=== PATIENT | male | born 1965 | race Caucasian/White ===

== ENCOUNTER → 2019-02-07 14:39 | Outpatient (CLI) | payer OTHER, SELFPAY ==
--- NOTE | 2019-02-07 14:56 | XR_ITS ---
XR chest 2V HISTORY: ITS.REASON: COUGH ORDERING PHYSICIAN: Audi White MD PATIENT AGE: 53 years COMPARISON: 08/09/2009. FINDINGS: The cardiomediastinal silhouette and pulmonary vascularity are within normal limits. There is a stable right lung benign calcified granuloma. There is also punctate left midlung benign calcified granuloma. The lung field lateral is clear. There is no pleural effusion or pneumothorax.. No acute bony abnormalities. IMPRESSION: No change and no acute process.
[2019-02-07 16:20] LABS: Alanine Aminotransferase 68 U/L (12-78); Albumin Level 3.6 gm/dL (3.4-5.0); Alkaline Phosphatase 73 U/L (46-116); Anion Gap 16.7 mEq/L (5-15); Aspartate Amino Transferase 21 U/L (15-37); Bilirubin,Total 0.3 mg/dL (0.2-1.0); Blood Urea Nitrogen 20 mg/dL (7-18); CKMB Relative Index 1.1 U/L (0-4.0); Calcium 8.5 mg/dL (8.5-10.1); Carbon Dioxide 26 mmol/L (21.0-32.0); Chloride 102 mmol/L (98-107); Creatine Kinase 80 U/L (39-308); Creatine Kinase MB 0.9 ng/ml (0.0-3.6); Creatinine,Serum 1.37 mg/dL (0.70-1.30); Estimated Glomerular Filt Rate 55 ml/min (>60); GFR (African American) 66 ML/MIN (>60); Globulin 3.5 gm/dl (1.3-3.2); Glucose 128 mg/dL (74-106); Potassium 3.7 mmoL/L (3.5-5.1); Sodium 141 mmol/L (136-145); Total Protein,Serum 7.1 gm/dL (6.4-8.2); Troponin I < 0.02 ng/ml (0.00-0.06); Uric Acid 9.1 mg/dL (2.6-7.2)
== END ==
PROVIDERS: PCP Family Medicine; Visit Provider Family Medicine
DX: R07.9 Chest pain, unspecified (principal); R05 Cough; R52 Pain, unspecified
CPT/HCPCS: 36415; 71046; 80053; 82550; 82553; 84484; 84550; 93005

== ENCOUNTER → 2019-03-03 08:45 | Outpatient (POV) | payer OTHER, SELFPAY | PROVIDERS: Visit Provider Specialist | DX: R20.0 Anesthesia of skin (principal); R20.2 Paresthesia of skin | CPT/HCPCS: 95886; 95909 ==

== ENCOUNTER → 2019-11-04 11:42 | Outpatient (CLI) | payer OTHER, SELFPAY ==
--- NOTE | 2019-11-04 11:45 | XR_ITS ---
PROCEDURE: XR CHEST 2V CLINICAL HISTORY: UPPER RESPIRATORY SYMPTOMS , Rheumatoid arthritis, cough COMPARISON: No exams were available for comparison FINDINGS: The cardiomediastinal silhouette and pulmonary vascularity are within normal limits. The lungs are clear without infiltrates, suspicious nodules, or pleural effusions. There is a calcified granuloma in the right midlung in the right middle lobe. No acute bony findings. IMPRESSION: No acute findings. Dictated by: Geovanny Saenz MD 11/04/2019 12:03 Electronically signed by Geovanny Saenz MD in [place] 11/04/2019 12:03
== END ==
PROVIDERS: PCP Family Medicine; Visit Provider Family Medicine
DX: R05 Cough (principal)
CPT/HCPCS: 71046

== ENCOUNTER → 2020-05-26 11:43 | Outpatient (CLI) | payer OTHER, SELFPAY ==
[2020-05-26 12:15] LABS: Basophils # 0.1 K/mm3 (0-0.2); Basophils % 1.5 % (0.1-2.0); Eosinophils # 0.3 K/mm3 (0.0-0.4); Eosinophils % 3.8 % (0.1-12.0); Hematocrit 42.5 % (42.0-52.0); Hemoglobin 14.1 g/dL (14.1-18.0); Lymphocytes # 2.3 K/mm3 (0.7-4.5); Lymphocytes % 35.1 % (10-50); Mean Corpuscular HGB Conc 33.2 g/dL (31.8-35.4); Mean Corpuscular Hemoglobin 31.7 pg (27.0-31.2); Mean Corpuscular Volume 95.4 fl (80-94); Mean Platelet Volume 6.7 fl (7.4-10.4); Monocytes # 0.5 K/mm3 (0.1-1.0); Monocytes % 7.1 % (1.7-9.3); Neutrophils # 3.5 K/mm3 (1.8-7.8); Neutrophils % 52.5 % (37.0-80.0); Platelet Count 322 K/mm3 (142-424); Red Blood Count 4.45 M/mm3 (4.60-6.20); Red Cell Distribution Width 13.2 % (11.5-17.5); White Blood Count 6.6 K/mm3 (4.8-10.8)
[2020-05-26 12:25] LABS: Strep Scrn Group A (Rapid) Negative (Negative)
== END ==
PROVIDERS: PCP Family Medicine; Visit Provider Nurse Practitioner
DX: Z03.818 Encounter for observation for suspected exposure to other biological agents ruled out (principal)
CPT/HCPCS: 36415; 85025; 87430; U0003

== ENCOUNTER 2020-07-06 09:42 | Emergency (ER) | payer OTHER, SELFPAY ==
[2020-07-06 10:15] VITALS: BP 133/92; PULSE 75; RESP 19; TEMP 36.6; O2SAT 98; BMI 32.7
--- NOTE | 2020-07-06 10:35 | HMH.EDUTC ---
[facility] Disposition Clinical Impression: Exposure to COVID-19 virus Disposition: Home, Self-Care Condition on Discharge: Good Instructions: Preventing the Spread of Coronavirus Discharge Instructions Additional Instructions: *Monitor Temp, Over the counter Motrin or Tylenol as directed/as needed Tylenol every 4 hours and Motrin every 6 hours (as long as your family doctor has told you that you can take it) for fever or pain. and straight to ER if unable to lower temp less than 101.0 after medication given *Warm salt water gargles may help to soothe the throat *Throat Lozenges *Warm fluids like tea with honey may help to soothe the throat *Sleep elevated *Humidifier/Vaporizer Follow up IMMEDIATELY for new or worsening symptoms or no Noticeable improvement over the next 48-72 hours. 911 for difficulty breathing or swallowing You was tested for today for COVID19 your test result should be back in the next 24-48 hours, you may call to the [facility] tomorrow to see if your test results are back and the result [phone] [facility] hours are 9am-9pm You was given a handout with instructions for Self Quarantine and Self isolation for while you wait on test results and what to do if they are positive If you are positive the Health Dept will be contacting you also Referrals: Audi White MD [Primary Care Provider] - As needed Forms: Work/School Release Time of Disposition: 10:36 Medical Decision Making - C[place] Inquiry Pt receiving controlled substance: No [place] was queried for this patient: No Vital Signs: 07/06/20 10:15 Temperature 97.8 F Temperature Source Oral Pulse Rate [Right Brachial] 75 Respiratory Rate 19 Blood Pressure [Right Arm] 133/92 H Blood Pressure Mean [Right Arm] 105 Blood Pressure Source [Right Arm] Automatic Cuff Blood Pressure Position [Right Arm] Sitting 02 Sat by Pulse Oximetry 98 Oxygen Delivery Method Room Air [facility] HPI - General Stated complaint: covid exposure Time Seen by Provider: 07/06/20 10:35 Mode of Arrival: Ambulatory Source of Information: Patient Limitations: No Limitations Description of Symptoms (Recalled from Triage Doc. by RN): PATIENT REQUESTING COVID TEST D/T EXPOSURE; DENIES SYMPTOMS HEENT Symptoms (Recalled from RN notes): No Resp Symptoms (Recalled from RN notes): No Skin Symptoms (Recalled from RN notes): No MS Symptoms (Recalled from RN notes): No Functional Status (Recalled from RN notes): WNL - History of Present Illness Provider Complaint: Patient states that he was recently exposed to COVID by someone that just tested positive States that he is not having any symptoms but still wanted to get checked - Related Data Allergies Allergy/AdvReac Type Severity Reaction Status Date / Time No Known Allergies Allergy Verified 07/06/20 10:24 - Worker's Comp Is this a Worker's Comp case?: No [facility] History - Hepatitis A Screen Drug use history?: No High risk sexual behaviors?: No History of sexually transmitted infection?: No Currently employed?: No Childcare worker?: No Do you have indoor plumbing?: Yes Do you have electricity?: Yes Attestation statement:: This patient has been screened for Hepatitis A risk factors. I have reviewed the patient's past medical history: Yes Medical History: Reports:: Diabetes Mellitus Type 2 - Social History Alcohol Intake: never Occupational Status: other ROS Obtained: Yes All systems reviewed & no additional complaints, Yes Systems reviewed as appropriate & no additional complaints - Constitutional Constitutional: Reports system reviewed and no additional complaints, except as docu, Denies body ache, Denies chills, Denies fever(s), Denies headache(s) Physical Exam - General General appearance: alert, in no apparent distress - ENT ENT exam: Present: normal exam, normal oropharynx, mucous membranes moist, TM's normal bilaterally, normal external ear exam - Respiratory Respiratory exam: Present: normal lung sounds
[2020-07-06 10:55] VITALS: BP 133/92; PULSE 75; RESP 19; TEMP 36.6; O2SAT 98
[2020-07-07 15:33] LABS: Covid-19 Nasal PCR Sendout Lex Not Detected
== END 2020-07-06 10:56 | disposition home or self-care (01) ==
PROVIDERS: Emergency Provider Nurse Practitioner; PCP Family Medicine
DX: Z20.828 Contact with and (suspected) exposure to other viral communicable diseases (principal)
CPT/HCPCS: 99201; U0004

== ENCOUNTER → 2021-03-02 09:58 | Outpatient (CLI) | payer OTHER, SELFPAY ==
[2021-03-02 10:51] LABS: Adenovirus,PCR Not Detected (NotDetected); Bordetella Pertussis Not Detected (NotDetected); Chlamydophila Pneumoniae, PCR Not Detected (NotDetected); Coronavirus 19, PCR Not Detected (NotDetected); Coronavirus 229E Not Detected (NotDetected); Coronavirus NL63 Not Detected (NotDetected); Coronavirus OC43 Not Detected (NotDetected); Coronovirus HKU1,PCR Not Detected (NotDetected); Human Metapneumovirus Not Detected (NotDetected); Influenza A, PCR Not Detected (NotDetected); Influenza AH1, 2009 Not Detected (NotDetected); Influenza AH1, PCR Not Detected (NotDetected); Influenza AH3,PCR Not Detected (NotDetected); Influenza B, PCR Not Detected (NotDetected); Mycoplasma Pneumoniae, PCR Not Detected (NotDetected); Parainfluenza 1, PCR Not Detected (NotDetected); Parainfluenza 2, PCR Not Detected (NotDetected); Parainfluenza 3, PCR Not Detected (NotDetected); Parainfluenza 4, PCR Not Detected (NotDetected); Respiratory Syncytial Virus Not Detected (NotDetected); Rhinovirus/Enterovirus Not Detected (NotDetected)
[2021-03-02 12:33] LABS: Basophils # 0.1 K/mm3 (0-0.2); Basophils % 0.6 % (0.1-2.0); Eosinophils % 0.3 % (0.1-12.0); Hematocrit 40.7 % (42.0-52.0); Hemoglobin 14.8 g/dL (14.1-18.0); Lymphocytes # 1.7 K/mm3 (0.7-4.5); Lymphocytes % 16.9 % (10-50); Mean Corpuscular HGB Conc 36.4 g/dL (31.8-35.4); Mean Corpuscular Hemoglobin 32.9 pg (27.0-31.2); Mean Corpuscular Volume 90.5 fl (80-94); Mean Platelet Volume 8.1 fl (7.4-10.4); Monocytes # 0.4 K/mm3 (0.1-1.0); Monocytes % 4.3 % (1.7-9.3); Platelet Count 383 K/mm3 (142-424); Red Blood Count 4.49 M/mm3 (4.60-6.20); Red Cell Distribution Width 13.9 % (11.5-17.5); White Blood Count 10.2 K/mm3 (4.8-10.8)
== END ==
PROVIDERS: PCP Family Medicine; Visit Provider Family Medicine
DX: Z20.822 Contact with and (suspected) exposure to COVID-19 (principal)
CPT/HCPCS: 36415; 85025; 87581; 87633; 87798

== ENCOUNTER 2021-04-18 11:35 | Emergency (ER) | payer OTHER, SELFPAY ==
[2021-04-18 13:28] VITALS: BP 0/0; PULSE 0; RESP 0; TEMP -17.7; TEMP 0
== END 2021-04-18 13:29 | disposition left against medical advice (07) ==
PROVIDERS: Emergency Provider Nurse Practitioner; PCP Family Medicine
DX: Z53.21 Procedure and treatment not carried out due to patient leaving prior to being seen by health care provider (principal)

== ENCOUNTER → 2022-02-25 08:34 | Outpatient (CLI) | payer BC, SELFPAY ==
[2022-02-24 18:27] LABS: Basophils # 0.1 K/mm3 (0-0.2); Basophils % 1.8 % (0.1-2.0); Eosinophils # 0.2 K/mm3 (0.0-0.4); Eosinophils % 4.1 % (0.1-12.0); Hematocrit 41.5 % (42.0-52.0); Hemoglobin 13.8 g/dL (14.1-18.0); Lymphocytes # 1.9 K/mm3 (0.7-4.5); Lymphocytes % 36.3 % (10-50); Mean Corpuscular HGB Conc 33.3 g/dL (31.8-35.4); Mean Corpuscular Hemoglobin 32.1 pg (27.0-31.2); Mean Corpuscular Volume 96.3 fl (80-94); Monocytes # 0.4 K/mm3 (0.1-1.0); Monocytes % 7.3 % (1.7-9.3); Neutrophils # 2.6 K/mm3 (1.8-7.8); Neutrophils % 50.6 % (37.0-80.0); Platelet Count 380 K/mm3 (142-424); Red Blood Count 4.31 M/mm3 (4.60-6.20); Red Cell Distribution Width 13.7 % (11.5-17.5); White Blood Count 5.2 K/mm3 (4.8-10.8)
[2022-02-24 18:30] LABS: Chol/HDL Ratio 5.8 (1-3.5); Cholesterol 197 mg/dl (140-200); HDL Cholesterol 34 mg/dl (40-60)
[2022-02-24 18:33] LABS: Triglycerides 418 mg/dl (30-150)
[2022-02-24 19:01] LABS: Erythrocyte Sedimentation Rate 21 mm/hr (0-20)
== END ==
PROVIDERS: PCP Family Medicine; Visit Provider Family Medicine
DX: M05.79 Rheumatoid arthritis with rheumatoid factor of multiple sites without organ or systems involvement (principal); E78.5 Hyperlipidemia, unspecified
CPT/HCPCS: 80061; 85025; 85651

== ENCOUNTER → 2022-05-20 08:23 | Outpatient (CLI) | payer BC, SELFPAY ==
[2022-05-19 19:48] LABS: Anion Gap 18.9 mEq/L (5-15); Blood Urea Nitrogen 19 mg/dl (9-20); Calcium 9.2 mg/dl (8.4-10.2); Carbon Dioxide 25 mmol/L (22.0-30.0); Chloride 99 mmol/L (98-107); Estimated Glomerular Filt Rate 53 ml/min (>60); GFR (African American) 64 ML/MIN (>60); Glucose 127 mg/dl (74-100); Potassium 3.9 mmoL/L (3.5-5.1); Sodium 139 mmol/L (136-145)
[2022-05-19 20:19] LABS: Prostate Specific Ag Screen 0.9 ng/ml (0.0-4.0)
== END ==
PROVIDERS: PCP Family Medicine; Visit Provider Family Medicine
DX: N40.0 Benign prostatic hyperplasia without lower urinary tract symptoms (principal); Z12.5 Encounter for screening for malignant neoplasm of prostate
CPT/HCPCS: 80048; G0103

== ENCOUNTER → 2022-08-01 16:50 | Outpatient (CLI) | payer BC, SELFPAY ==
[2022-08-01 19:24] LABS: Basophils # 0.1 K/mm3 (0-0.2); Basophils % 1.3 % (0.1-2.0); Eosinophils # 0.3 K/mm3 (0.0-0.4); Eosinophils % 2.8 % (0.1-12.0); Hematocrit 40.9 % (42.0-52.0); Hemoglobin 13.8 g/dL (14.1-18.0); Lymphocytes # 2.4 K/mm3 (0.7-4.5); Lymphocytes % 26.7 % (10-50); Mean Corpuscular HGB Conc 33.8 g/dL (31.8-35.4); Mean Corpuscular Volume 94.8 fl (80-94); Mean Platelet Volume 7.3 fl (7.4-10.4); Monocytes # 0.4 K/mm3 (0.1-1.0); Monocytes % 4.5 % (1.7-9.3); Neutrophils # 5.9 K/mm3 (1.8-7.8); Neutrophils % 64.6 % (37.0-80.0); Platelet Count 388 K/mm3 (142-424); Red Blood Count 4.31 M/mm3 (4.60-6.20); Red Cell Distribution Width 13.1 % (11.5-17.5); White Blood Count 9.1 K/mm3 (4.8-10.8)
[2022-08-01 19:25] LABS: Alanine Aminotransferase 53 U/L (12-78); Albumin Level 4.5 g/dl (3.5-5.0); Albumin/Globulin Ratio 1.7 (1.1-1.8); Alkaline Phosphatase 90 U/L (38-126); Anion Gap 15.5 mEq/L (5-15); Aspartate Amino Transferase 40 U/L (17-59); Bilirubin,Total 0.2 mg/dl (0.2-1.3); Blood Urea Nitrogen 22 mg/dl (9-20); Calcium 9.9 mg/dl (8.4-10.2); Carbon Dioxide 24 mmol/L (22.0-30.0); Chloride 103 mmol/L (98-107); Estimated Glomerular Filt Rate 58 ml/min (>60); GFR (African American) 70 ML/MIN (>60); Globulin 2.6 g/dL (1.3-3.2); Glucose 235 mg/dl (74-100); Potassium 3.5 mmoL/L (3.5-5.1); Sodium 139 mmol/L (136-145); Total Protein,Serum 7.1 g/dl (6.3-8.2)
[2022-08-01 20:48] LABS: Erythrocyte Sedimentation Rate 23 mm/hr (0-20)
== END ==
LOC: LAB.DROPOF 08-02 07:03
PROVIDERS: PCP Family Medicine; Visit Provider Family Medicine
DX: M06.9 Rheumatoid arthritis, unspecified (principal)
CPT/HCPCS: 80053; 85025; 85651

== ENCOUNTER → 2022-12-05 23:13 | Outpatient (CLI) | payer BC, SELFPAY ==
[2022-12-05 18:50] LABS: Alanine Aminotransferase 49 U/L (12-78); Albumin Level 4.6 g/dl (3.5-5.0); Albumin/Globulin Ratio 1.6 (1.1-1.8); Alkaline Phosphatase 75 U/L (38-126); Anion Gap 14.1 mEq/L (5-15); Aspartate Amino Transferase 40 U/L (17-59); Bilirubin,Total 0.6 mg/dl (0.2-1.3); Blood Urea Nitrogen 19 mg/dl (9-20); Calcium 8.9 mg/dl (8.4-10.2); Carbon Dioxide 28 mmol/L (22.0-30.0); Chloride 100 mmol/L (98-107); Estimated Glomerular Filt Rate 63 ml/min (>60); GFR (African American) 76 ML/MIN (>60); Globulin 2.9 g/dL (1.3-3.2); Glucose 113 mg/dl (74-100); Potassium 4.1 mmoL/L (3.5-5.1); Sodium 138 mmol/L (136-145); Total Protein,Serum 7.5 g/dl (6.3-8.2)
[2022-12-05 20:14] LABS: Creatinine,Urine Random 119 mg/dL (Not Estab.)
== END ==
LOC: LAB.DROPOF 23:13
PROVIDERS: PCP Family Medicine; Visit Provider Family Medicine
DX: E11.9 Type 2 diabetes mellitus without complications (principal); M06.9 Rheumatoid arthritis, unspecified; Z79.84 Long term (current) use of oral hypoglycemic drugs
CPT/HCPCS: 80053; 82043; 82570

== ENCOUNTER 2023-09-11 20:37 | Outpatient (CLI) | payer BC, SELFPAY ==
[2023-09-11 18:45] LABS: Alanine Aminotransferase 33 U/L (12-78); Albumin Level 4.2 g/dl (3.5-5.0); Albumin/Globulin Ratio 1.6 (1.1-1.8); Alkaline Phosphatase 70 U/L (38-126); Anion Gap 10.8 mEq/L (5-15); Aspartate Amino Transferase 29 U/L (17-59); Bilirubin,Total 0.4 mg/dl (0.2-1.3); Blood Urea Nitrogen 15 mg/dl (9-20); Calcium 9.5 mg/dl (8.4-10.2); Carbon Dioxide 28 mmol/L (22.0-30.0); Chloride 106 mmol/L (98-107); Estimated Glomerular Filt Rate 57 ml/min (>60); GFR (African American) 69 ML/MIN (>60); Globulin 2.6 g/dL (1.3-3.2); Glucose 109 mg/dl (74-100); Potassium 3.8 mmoL/L (3.5-5.1); Sodium 141 mmol/L (136-145); Total Protein,Serum 6.8 g/dl (6.3-8.2)
[2023-09-11 19:13] LABS: Prostate Specific Ag Screen 0.9 ng/ml (0.0-4.0)
== END 2023-09-11 23:59 ==
LOC: LAB.DROPOF 20:37
PROVIDERS: PCP Family Medicine; Visit Provider Family Medicine
DX: E11.9 Type 2 diabetes mellitus without complications (principal); N40.0 Benign prostatic hyperplasia without lower urinary tract symptoms; Z79.84 Long term (current) use of oral hypoglycemic drugs; Z79.85 Long-term (current) use of injectable non-insulin antidiabetic drugs
CPT/HCPCS: 80053; G0103

== ENCOUNTER 2025-03-19 15:37 | Outpatient (CLI) | payer OTHER, MEDICARE, SELFPAY ==
--- OUTSIDE RECORDS SUMMARY | 2024-12-01 07:00 | XMS_ITS ---
Author Organization [facility] Address [address] [facility] [address] [place] [id number] Care Team Providers Care Mangle Press Catcher Name Role Phone Jw White Primary Care Provider Galilea Palomares [phone] Allergies No Known Allergies REASON FOR VISIT F/U from [facility], lung infection Encounters Encounter Location Date Provider Diagnosis [facility] [address] [facility] [address] [place] [id number] 12/01/2024 Galilea Palomares Plan Of Treatment Next Appt Details Provider Name:Jw Davison er, 04/17/2025 11:30:00 AM, [address] [facility] [address], [address], [place], [id number], Progress Notes * SLY LEDOB:1965 (59 yo M)Acc No.[id number]:12/01/2024 Progress Notes Patient: SLY LASSITER Provider: SHAMIKA Gomez :1965 A ge:58 Y S ex:Male Date:12/01/2024 Address:[address] [id number] Pcp:Jw White Subjective: * Chief Complaints: * 1 . F/U from [facility], lung infection. * HPI: H PI: 58 year old male presents with c/o Here for follow up on: P t is here today for a f/u from [facility]. Pt sts he has a lung infection. * ROS: D ERMATOLOGY: no R cong. n o H eric. G ASTROENTEROLOGY: no N ausea. n o V omiting. n o D iarrhea.? U ROLOGY: no D ifficulty urinating. n o B lood in urine. * Medical History: R heumatoid arthritis, Gout, Anxiety, Hypertension, 03/03/19 normal lower ext EMG/NCV, COVID 19 infection 04/2021. Had antibody infusion.. * Surgical History: r otator cuff 1999, EGD and colonoscopy, adenomatous polyp, mild reflux esophagitis, Dr.Scott Hernandez 04/18/2019, left elbow 06/18/2019[facility] Elbow [facility] 2021, Hip Surgery . * Hospitalization/Major Diagno stic Procedure: G -twn laceration Right hand 09/19/2016, G-twn ER -fall 09/24/2016. * Family History: F ather: . M other: alive. P aternal Grand Father: . P aternal Grand Mother: . M aternal Grand Father: . M aternal Grand Mother: .?2 son(s) , 2 daughter(s) - healthy. . * Social History: C URRENT TOBACCO USE S moking Status: P atient does NOT smoke. E xercise: yes. Marital Status: . * Allergies: N .K.D.A. Objective: * Vitals: Assessment: Plan: * Treatment: * Images: Billing Information: * Visit Code: * Procedure Codes: * Electronic signature of Astrid Palomares APRN on 03/19/2025 at 03:42 PM EDT Sign off status: Pending * Provider: SHAMIKA Gomez Date: 0 12/01/2024 Generated for Freya murguia/Sasha/Shirley on: 0 03/19/2025 03:42 PM EDT History and Physical Notes * HPI (History of Present Illness) Category Sub-Category Detail Notes Category Not es HPI Here for follow up on: Pt is her e today for a f/u from [facility]. Pt sts he has a lung infection
--- OUTSIDE RECORDS SUMMARY | 2024-12-15 06:35 | XMS_ITS ---
Author Organization [facility] Address [address] [facility] [address] [place] [id number] Care Team Providers Care Pedorthist Name Role Phone Jw White Primary Care Provider [phone] Allergies No Known Allergies Results Component Value Reference Range Notes Glycohemoglobin A1c (in hous e) Reviewed date:12/16/2024 02:06:27 PM Interpretation: Performing Lab: Notes/Report: glycohemoglobin 6.0% 5 - 6.5 % REASON FOR VISIT 2 month check, Needs shingles vaccine Medications Medication SIG (Take, Route, Frequency, Duration) Notes Start Date End Date Status Methotrexate 2.5MG 4 TAB S P.O. ONCE A WEEK Active predniSONE 5 MG 1 tablet with food o r milk Orally Once a day Active Analpram HC 2.5-1 % 1 application Retail Shift Supervisor ally Three times a day 03/03/2024 Active Ventolin HFA 108 (90 Base) MCG/ACT 2 puff(s) inhaled 4 times a day; Duration: 75 Active Allopurinol 100 MG 2 tab(s) orally once a day; Duration: 90 Active Enbrel 50 MG/ML subcutaneously once a week Not-Taking Colcrys 0.6 MG 1 tab(s) orally bid; Duration: 30 day(s) 06/10/2019 Not-Taking Gabapentin 300 MG 1 cap(s) orally 3 ti mes a day 12/15/2024 Active Ozempic (0.25 or 0.5 MG/DOSE) 2 MG/3ML 0.5mg Subcutaneous once a week 07/01/2024 Active Losartan Potassium 50 MG 1 tab(s) orally once a day; Duration: 90 Active metFORMIN HCl 500 MG 1 tab(s) Orally Two times a day; Duration: 90 days Active Sildenafil Citrate 20 MG 3 orally as directed; Duration: 20 08/19/2021 Active traMADol HCl 50 MG 1 tablet as needed O rally three times a day as needed 07/07/2024 Active Triamterene-HCTZ 37.5-25 MG 1 tab(s) orally once a day; Duration: 90 Active Fluticasone Propionate 50 MCG/ACT 1 spray(s) intranasally once a day; Duration: 30 day(s) Active Folic Acid 1 MG 1 tab(s) orally once daily Active Problems Problem Type SNOMED Code ICD Code Onset Dates Problem Status W/U Status Risk Notes Problem Body mass index 30+ - obesity (743131791) BMI 30.0-30.9,a dult (Z68.30) Active confirmed Vital Signs Blood pressure systolic 110 mm Hg 12/16/19 25 Blood pressure diastolic 72 mm Hg 025 Heart Rate 69 /min 12/15/2024 Height 70 in 12/15/2024 Weight 212.4 lbs 12/15/2024 BMI 30.47 kg/m2 12/15/2024 Encounters Encounter Location Date Provider Diagnosis [facility] [address] [facility] [address] [place] [address], [place] [id number] 12/15/2024 Jw White Mild intermittent asthmatic bronchitis without complication J45.20 ; Type 2 diabetes mellitus without complication, without long-term current use of insulin E11.9 ; Rheumatoid arthritis involving multiple sites, unspecified rheumatoid factor presence M06.9 and BMI 30.0-30.9,adult Z68.30 Assessments Encounter Date Diagnosis (ICD Code) Assessment Notes Treatment Notes Treatment Clinical Notes Section Notes 12/15/2024 Mild intermittent asthmatic bronchitis without complication (ICD-10 - J45.20) 12/15/2024 Type 2 diabetes mellitus without complication, without long-term current use of insulin (ICD-10 - E11.9) 12/15/2024 Rheumatoid arthritis involving multiple sites, unspecified rheumatoid factor presence (ICD-10 - M06.9) 12/15/2024 BMI 30.0-30.9,adult (ICD-10 - Z68.30) Plan Of Treatment Medication Medication Name Sig Start Date Stop Date Notes Gabapentin 300 MG 1 cap(s) orally 3 times a day 12/15/2024 Ozempic (0.25 or 0.5 MG/DOSE) 2 MG/3ML 0.5mg Subcutaneous once a week 07/01/2024 Next Appt Details Follow Up: 4 Months, Reason: Provider Name:Jw Davison er, 04/17/2025 11:30:00 AM, [address], [address], [place], [place], [id number], Progress Notes * SLY LEDOB:1965 (59 yo M)Acc No.[id number]:12/15/2024 Progress Notes Patient: SLY LASSITER Provider: Jw White M.D. :1965 A ge:58 Y S ex:Male Date:12/15/2024 Address:[address] [place], [place] [id number] Subjective: * Chief Complaints: * 1 . 2 month check. 2. Needs shingles vaccine. * HPI: C ardiology: The patient is here for a check up on Hypertension, Hyperlipidemia. and Diabetes. Pt states he was in the hospital for a few day in [facility] for shortness of breath. Pt states he had infection in the left lung. Overnight stay. Pt states he went home with home oxygen. Pt states . Pt is fasting. Pt states he is needing refills sent to [place] [facility] in [facility]. Denies : Chest Pain. D enies : Short of Breath. D enies : Dizziness. D enies : Palpitations. * ROS: D ERMATOLOGY: no R cong. [...] 04/18/2019, left elbow 06/18/2019, rt elbow, Dr. Orozco, [place] 05/2021, Bilateral Elbow Surgery 2021, Hip Surgery [...] E xercise: yes. Marital Status: . * Medications: T aking predniSONE 5 MG Tablet 1 tablet with food or milk Orally Once a day , Taking Analpram HC 2.5-1 % Cream 1 application Externally Three times a day , Taking Ventolin HFA 108 (90 Base) MCG/ACT Aerosol Solution 2 puff(s) inhaled 4 times a day , Taking Allopurinol 100 MG Tablet 2 tab(s) orally once a day , Taking Methotrexate 2.5MG 4 TAB S P.O. ONCE A WEEK , Taking Folic Acid 1 MG Tablet 1 tab(s) orally once daily , Taking Sildenafil Citrate 20 MG Tablet 3 orally as directed , Taking Gabapentin 300 MG Capsule 1 cap(s) orally 3 times a day , Taking metFORMIN HCl 500 MG Tablet 1 tab(s) Orally Two times a day , Taking Ozempic (0.25 or 0.5 MG/DOSE) 2 MG/3ML Solution Pen-injector 0.5mg Subcutaneous once a week , Taking Fluticasone Propionate 50 MCG/ACT Suspension 1 spray(s) intranasally once a day , Taking traMADol HCl 50 MG Tablet 1 tablet as needed Orally three times a day as needed , Taking Triamterene-HCTZ 37.5-25 MG Tablet 1 tab(s) orally once a day , Taking Losartan Potassium 50 MG Tablet 1 tab(s) orally once a day , Not-Taking Enbrel 50 MG/ML Solution Prefilled Syringe subcutaneously once a week , Not-Taking Colcrys 0.6 MG Tablet 1 tab(s) orally bid , Medication List reviewed and reconciled with the patient * Allergies: N .K.D.A. Objective: * Vitals: W t: 212.4, Temp: 98.01, BP: 110/72, HR: 69, Nurse: ANGEL, Ht: 70, BMI:30.47. * Examination: G eneral Examination: General Appearance: N AD. H EENT: u nremarkable.?Oral cavity: n o lesions, mucosa moist and WNL, no erythema. N david: s upple, no lymphadenopathy. C hest: n ormal shape and expansion. H eart: R SR. L ungs: c lear to auscultation. A bdomen: obese, soft and nontender. N eurologic Exam: I ntact, gait normal. S kin: n ormal, no rash. P eripheral pulses: n ormal. B ack: mild dorsal kyphosis. E xtremities: m inimal l eg edema, some joint swelling. ? Assessment: * Assessment: 1. T ype 2 diabetes mellitus without complication, without long-term current use of insulin - E11.9 2 . M ild intermittent asthmatic bronchitis without complication - J45.20 3. R heumatoid arthritis involving multiple sites, unspecified rheumatoid factor presence - M06.9 4 . B MT 30.0-30.9,adult - Z68.30 Plan: * Treatment: Value Reference Range g lycohemoglobin 6.0% 5 - 6.5 % * Amy Mukherjee 12/15/2024 12: 36:23 PM > Provider reviewed results while patient in office. 2.?Rheumatoid arthritis involving multiple sites, unspecified rheumatoid factor presence? Refill Gabapentin Capsule, 300 MG, 1 cap(s), orally, 3 times a day, 90, Refills 1.?? * Procedure Codes: G 2211 Complex e/[place], [address] CAPILLARY BLOOD DRAW, 43465 GLYCATED HEMOGLOBIN TEST, Modifiers: QW , 3044F HG A1C LEVEL LT 7.0%, G8752 MOST RECENT SYSTOLIC BP < 140MM HG, G8754 MOST RECENT DIASTOLIC BP < 90MM HG * Follow Up: 4 Months * Images: Billing Information: * Visit Code: 37892 Office Visit, Est Pt., Level 4. * Procedure Codes: G2211 Complex e/[place]. [address] CAPILLARY BLOOD DRAW. 14880 GLYCATED HEMOGLOBIN TEST. Modifiers: QW 3044F HG A1C LEVEL LT 7.0%. G8752 MOST RECENT SYSTOLIC BP < 140MM HG. G8754 MOST RECENT DIASTOLIC BP < 90MM HG. * Electronic signature of Jw White MD on 03/19/2025 at 03:42 PM EDT Sign off status: Pending * Provider: Jw White M.D. Date: 0 12/15/2024 Generated for Freya murguia/Sasha/Graemeransmitting on: 0 03/19/2025 03:42 PM EDT History and Physical Notes * HPI (History of Present Illness) Category Sub-Category Detail Notes Category Not es Cardiology Short of Breath Chest Pain Palpitations Dizziness Examination Category Sub-Category Detail Notes Category Not es General Examination HEENT: unremarkable Heart: RSR Lungs: clear to auscultatio n Abdomen: obese, soft and nont nahed Extremities: minimal leg edema, s ome joint swelling General Appearance: NAD Skin: normal, no rash Neurologic Exam: Intact, gait normal Neck: supple, no lymphaden opathy Oral cavity: no lesions, mucosa m oist and WNL, no erythema Peripheral pulses: normal Back: mild dorsal kyphosis Chest: normal shape and exp ansion
--- OUTSIDE RECORDS SUMMARY | 2025-03-19 15:42 | XMS_ITS | Patient Health Record ---
Author Organization [facility] Address [address] [place] [id number] Care Team Providers Care Construction Code Administrator Name Role Phone Jw White Primary Care Provider [phone] Marielle Galilea Unavailable [phone] Allergies No Known Allergies Results Component Value Reference Range Notes Glycohemoglobin A1c (in hous e) Reviewed date:12/16/2024 02:06:27 PM Interpretation: Performing Lab: Notes/Report: glycohemoglobin 6.0% 5 - 6.5 % P-Comprehensive Metabolic Pa rc (CMP) Reviewed date:10/14/2024 12:34:52 PM Interpretation:Normal Performing Lab: Notes/Report: Test performed by [facility], [address] , [address], [place] [address] Anil Beckford MD, Aba Tutor CLIA: [id number] Sodium 141 135-145 mmol/L Potassium 4.0 3.5-5.3 mmol/L Chloride 102 97-108 mmol/L CO2 27 22-32 mmol/L Glucose 88 65-99 mg/dL BUN 16 6-20 mg/dL Creatinine 1.15 0.70-1.30 mg/dL Calcium 9.8 8.6-10.4 mg/dL eGFR by Creatinine 74 >59 mL/min/1.73m2 Protein 6.6 6.0-8.3 g/dL Albumin 4.3 3.5-5.3 g/dL Alkaline Phosphatase 73 40-129 IU/L ALT (SGPT) 24 <5-55 IU/L AST (SGOT) 16 <5-46 IU/L Bilirubin, Total 0.3 <0.2-1.2 mg/dL A/G Ratio 1.9 1.1-2.5 Glycohemoglobin A1c (in hous e) Reviewed date:07/08/2024 10:27:06 AM Interpretation: Performing Lab: Notes/Report: glycohemoglobin 5.6% 5 - 6.5 % P-Comprehensive Metabolic Pa rc (CMP) Reviewed date:07/08/2024 03:56:55 PM Interpretation:bun 22, Cr 1.72, gfr 46 Performing Lab: Notes/Report: Test performed by [facility] [address] [place], [place] [address] [place] , [address], [place] [address] Anil Beckford MD, Aba Tutor CLIA: [id number] Sodium 142 135-145 mmol/L Potassium 4.0 3.5-5.3 mmol/L Chloride 104 97-108 mmol/L CO2 25 22-32 mmol/L Glucose 98 65-99 mg/dL BUN 22 6-20 mg/dL Creatinine 1.72 0.70-1.30 mg/dL Calcium 9.1 8.6-10.4 mg/dL eGFR by Creatinine 46 >59 mL/min/1.73m2 Protein 6.6 6.0-8.3 g/dL Albumin 4.4 3.5-5.3 g/dL Alkaline Phosphatase 63 40-129 IU/L ALT (SGPT) 22 <5-55 IU/L AST (SGOT) 17 <5-46 IU/L Bilirubin, Total 0.3 <0.2-1.2 mg/dL A/G Ratio 2.0 1.1-2.5 P-PSA Reviewed date:07/08/2024 03:56:55 PM Interpretation:Normal Performing Lab: Notes/Report: Test performed by [facility] [address] [place] [address] , [address], [place] [address] Anil Beckford MD, Aba Tutor CLIA: [id number] PSA 1.01 <4.00 ng/mL Please note this is an ultrasensitive PSA assay with a lower limit of detection of 0.014 ng/mL. This test is performed by the [employer] ECLIA methodology. Values obtained with different assay methods or kits cannot be directly compared. Reason For Referral Diagnosis 1 Abnormal kidney func tion (N28.9) Referral Organization [facility] Referring Provider First Name Jw Ta Referring Provider Last Name Christopher Referring Provider Speciality Family Pra ctice Referred Provider Abram Link Referred Provider Specialty Nephrology General Notes Therese Shetty 07/14/20 8:58:09 AM > faxed to Dr. Link's office, Therese Shetty 07/21/2024 10:49:18 AM > [facility] for office to call back with appointment time, Therese Shetty 07/25/2024 9:52:31 AM > 08/21/2023 at 01:20pm Referral Priority Routine Medications Medication SIG (Take, Route, Frequency, Duration) Notes Start Date End Date Status Ozempic (1 MG/DOSE) 4 MG/3ML 1 mg Subcutaneous once a week; Duration: 28 days 01/12/2025 Active Enbrel 50 MG/ML subcutaneously once a week Not-Taking traMADol HCl 50 MG 1 tablet as needed O rally 3 times a day; Duration: 30 days 03/10/2025 Active Methotrexate 2.5MG 4 TAB S P.O. ONCE A WEEK Active Colcrys 0.6 MG 1 tab(s) orally bid; Duration: 30 day(s) 06/10/2019 Not-Taking Gabapentin 300 MG 1 cap(s) orally 3 ti mes a day 12/15/2024 Active metFORMIN HCl 500 MG 1 tab(s) Orally Two times a day; Duration: 90 days Active Folic Acid 1 MG 1 tab(s) orally once daily Active Sildenafil Citrate 20 MG 3 orally as directed; Duration: 20 08/19/2021 Active predniSONE 5 MG 1 tablet with food o r milk Orally Once a day Active Analpram HC 2.5-1 % 1 application [employer] Science Writer ally Three times a day 03/03/2024 Active Triamterene-HCTZ 37.5-25 MG 1 tab(s) orally once a day; Duration: 90 Active Fluticasone Propionate 50 MCG/ACT 1 spray(s) intranasally once a day; Duration: 30 day(s) Active Ventolin HFA 108 (90 Base) MCG/ACT 2 puff(s) inhaled 4 times a day; Duration: 75 Active Losartan Potassium 50 MG 1 tab(s) orally once a day; Duration: 90 Active Allopurinol 100 MG 2 tab(s) orally once a day; Duration: 90 Active Immunizations Vaccine Route Administration Date Status Comme nts Tetanus Tdap-Adacel (over 7yrs) Unknown 08/29/2016 Administered Flublok IM Intramuscular 09/30/2018 Administered DT, 7 YEARS OR OLDER Unknown 10/15/1996 Administered Problems Problem Type SNOMED Code ICD Code Onset Dates Problem Status W/U Status Risk Notes Problem Sinusitis (62533529) Sinusitis (J32.9) Active confirmed Problem Essential hypertension (01937746) Essential hypertension (I10) Active confirmed Problem Anxiety (39439405) Anxiety (F41.9) Active confi rmed Problem Hyperuricemia (35894485) Hyperuricemia (E79.0) Active confirmed Problem Body mass index 30+ - obesity (226340220) BMI 30.0-30.9,adult (Z68.30) Active confirmed Problem Mixed hyperlipidemia (201761572) Mixed hyperlipidemia (E78.2) Active confirmed Problem Otalgia of right ear (finding) (7485441193) Otalgia, right ear (H92.01) Active confirmed Problem Chronic rhinitis (10104265) Chronic rhinitis (J31.0) Active confirmed Problem Epididymitis (06268810) Epididymitis (N45.1) Active confirmed Problem Excessive thirst (47091735) Polydipsia (R63.1) Active confirmed Problem Gastroesophageal reflux disease (753084561) GERD without esophagitis (K21.9) Active confirmed Problem Bronchitis (94423413) Bronchitis (J40) Active confirmed Problem Arthropathy (373109006) Arthropathy, 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) Active confirmed Problem Erectile dysfunction (disorder) (792268001) Erectile dysfunction, unspecified erectile dysfunction type (N52.9) Active confirmed Problem Hemorrhoids without complication (58093488) Hemorrhoids, unspecified hemorrhoid type (K64.9) Active confirmed Problem Rheumatoid arthritis (78035660) Rheumatoid arthritis involving multiple sites, unspecified rheumatoid factor presence (M06.9) Active confirmed Problem Carpal tunnel syndrome of left wrist (428015094218641) Carpal tunnel syndrome of left wrist (G56.02) Active confirmed Problem Body mass index 30.00 to 34.99 (975209202104875) BMI 34.0-34.9,adult (Z68.34) Active confirmed Problem Type II diabetes mellitus without complication (508999321) Type 2 diabetes mellitus without complication, without long-term current use of insulin (E11.9) Active confirmed Problem Neoplasm of skin of face (339533326) Neoplasm of skin of face (D49.2) Active confirmed Problem Gout (86077449) Acute gout of right foot, unspecified cause (M10.9) Active confirmed Problem Benign prostatic hypertrophy without outflow obstruction (168853498) Benign prostatic hyperplasia without lower urinary tract symptoms (N40.0) Active confirmed Problem Rheumatoid arthritis (77227039) Rheumatoid arthritis involving both knees, unspecified rheumatoid factor presence (M06.9) Active confirmed Problem Achrochordon (861683592) Achrochordon (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) Active confirmed Problem Gout (63342599) Acute gout of left foot, unspecified cause (M10.9) Active confirmed Problem Macrocytosis - no anemia (870106006) Macrocytosis without anemia (D75.89) Active confirmed Problem Mild intermittent asthma (958214915) Mild intermittent asthmatic bronchitis without complication (J45.20) Active confirmed Problem History of COVID-19 (734242197632873796 ) History of COVID-19 (Z86.16) Active confirmed Vital Signs Heart Rate 69 /min 12/15/2024 Blood pressure diastolic 72 mm Hg 12/15/2024 Height 70 in 12/15/2024 Blood pressure systolic 110 mm Hg 12/15/2024 Weight 212.4 lbs 12/15/2024 BMI 30.47 kg/m2 12/15/2024 Encounters Encounter Location Date Provider Diagnosis [facility] [address] [place] [id number] 10/13/2024 Jw White Essential hypertensi on I10 ; Arthropathy, multiple sites M12.9 ; Rheumatoid arthritis involving both knees, unspecified rheumatoid factor presence M06.9 and Renal insufficiency N28.9 [facility] [address] [facility] [address] [place] [id number] 12/15/2024 Jw White Mild intermittent asthmatic bronchitis without complication J45.20 ; Type 2 diabetes mellitus without complication, without long-term current use of insulin E11.9 ; Rheumatoid arthritis involving multiple sites, unspecified rheumatoid factor presence M06.9 and BMI 30.0-30.9,adult Z68.30 [facility] [address] [place], [place] [id number] 07/07/2024 Jw White Essential hypertensi on I10 ; Rheumatoid arthritis involving both knees, unspecified rheumatoid factor presence M06.9 ; Arthropathy, multiple sites M12.9 ; Type 2 diabetes mellitus without complication, without long-term current use of insulin E11.9 ; Benign prostatic hyperplasia without lower urinary tract symptoms N40.0 and Chronic rhinitis J31.0 [facility] [address] [place], [place] [id number] 03/24/2024 Jw White [facility] [address] [place], [place] [id number] 04/18/2024 Jw White Thrombosed hemorrhoi ds K64.5 [facility] [address] [place], [place] [id number] 05/20/2024 Jw White [facility] [address] [place], [place] [id number] 06/19/2024 Jw White [facility] [address] [place], [place] [id number] 07/01/2024 Jw White [facility] [address] [place], [place] [id number] 07/08/2024 Jw White Abnormal kidney function N28.9 [facility] [address] [place], [place] [id number] 07/21/2024 Jw White [facility] [address] [place], [place] [id number] 09/01/2024 Jw White [facility] [address] [place], [place] [id number] 10/14/2024 Jw White [facility] [address] [place], [place] [id number] 12/22/2024 Jw White [facility] [address] [place], [place] [id number] 01/12/2025 Jw White Type 2 diabetes mellitus without complication, without long-term current use of insulin E11.9 [facility] [address] [facility] [address] [place] [id number] 02/27/2025 Jw White [facility] [address] [facility] [address] [place] [id number] 03/10/2025 Jw BowlingKeyon Christopher Arthropathy, multipl e sites M12.9 Assessments Encounter Date Diagnosis (ICD Code) Assessment Notes Treatment Notes Treatment Clinical Notes Section Notes 04/18/2024 Thrombosed hemorrhoids (ICD-10 - K64.5) 07/07/2024 Essential hypertension (ICD-10 - I10) 07/07/2024 Rheumatoid arthritis involving both knees, unspecified rheumatoid factor presence (ICD-10 - M06.9) 07/08/2024 Abnormal kidney function (ICD-10 - N28.9) 10/13/2024 Essential hypertension (ICD-10 - I10) 10/13/2024 Arthropathy, multiple sites (ICD-10 - M12.9) 12/15/2024 Type 2 diabetes mellitus without complication, without long-term current use of insulin (ICD-10 - E11.9) 12/15/2024 Mild intermittent asthmatic bronchitis without complication (ICD-10 - J45.20) 01/12/2025 Type 2 diabetes mellitus without complication, without long-term current use of insulin (ICD-10 - E11.9) 03/10/2025 Arthropathy, multiple sites (ICD-10 - M12.9) 10/13/2024 Rheumatoid arthritis involving both knees, unspecified rheumatoid factor presence (ICD-10 - M06.9) 07/07/2024 Arthropathy, multiple sites (ICD-10 - M12.9) 12/15/2024 Rheumatoid arthritis involving multiple sites, unspecified rheumatoid factor presence (ICD-10 - M06.9) 10/13/2024 Renal insufficiency (ICD-10 - N28.9) 07/07/2024 Type 2 diabetes mellitus without complication, without long-term current use of insulin (ICD-10 - E11.9) 12/15/2024 BMI 30.0-30.9,adult (ICD-10 - Z68.30) 07/07/2024 Benign prostatic hyperplasia without lower urinary tract symptoms (ICD-10 - N40.0) 07/07/2024 Chronic rhinitis (ICD-10 - J31.0) Plan Of Treatment Pending Test Test Name Order Date LC-Comp. Metabolic Panel (14) 06/14/2021 Next Appt Details Provider Name:Jw Armando er, 03/19/2025 02:15:00 PM, [address], [address], [place], [id number], Provider Name:Jw Ta [facility] er, 04/17/2025 11:30:00 AM, [address], [address], [place], [id number], Insurance Providers Payer Name Payer Address Payer Phone Subscriber Number Group Number Insured Name Patient Relationship to Insured Coverage Start Date Coverage End Date MEDICARE PART B [address] [address] [place] [address] [id number] SLY LE Self - patient is the insured [employer] SU[employer]LEMENT [address] [address] [place], [place] [id number] SLY LE Self - patient is the insured Medications Administered Medication Instructions Date of Administration Dosage Notes Dexamethasone 07/07/2016 1 mL Medical (General) History Medical History History ICD Code Rheumatoid arthritis Gout anxiety hypertension 03/03/19 normal lower ext EMG/NCV COVID 19 infection 04/2021. Had antibody infusion. Surgical History Surgery Date(Month/Year) rotator cuff 2000 EGD and colonoscopy, adenoma tous polyp, mild reflux esophagitis, Dr.Scott Hernandez 04/18/2019 left elbow 06/18/2019 rt elbow, Dr. Orozco [place] 05/2021 Bilateral Elbow Surgery 2021 Hip Surgery Hospitalization History Reason Date(Month/Year) [facility] ER -fall 09/24/2016 [facility] laceration Right hand 09/19/2016
--- OUTSIDE RECORDS SUMMARY | 2025-03-19 15:42 | XMS_ITS | Clinical Summary ---
Author Organization [facility] Address [address] [place] [address] Care Team Providers Care Director [employer] Name Role Phone Unavailable Primary Care Provider Unavailabl e Social History Tobacco Use Types Packs/Day Years Used Date Smoking Tobacco: Never Assessed Sex and Gender Information Value Date Recorded Sex Assigned at Not on file Legal Sex Male 8:40 PM EDT Gender Identity Not on file Sexual Orientation Not on file Plan of Treatment Health Maintenance Due Date Last Done Comments [facility]-Depression Screening 1967 [facility]-Infant/Child/Adol SDOH Screenings 1965 [facility]- SDOH Screenings 12/28/1985 [facility]-Adult SDOH Screenings 12/28/1985 [facility]-Hepatitis B Vaccines (1 of 3 - 19+ 3-dose series) 12/28/1986 [facility]-DTaP,Tdap,and Td Vaccine s (1 - Tdap) 10/16/1996 10/15/1996 CT Colonography 12/28/2012 Colonoscopy 12/28/2012 FIT-DNA 12/28/2012 FIT 12/28/2012 FOBT 12/28/2012 Sigmoidoscopy 12/28/2012 [facility]-Colorectal Cancer Screening 12/28/2012 [facility]-Pneumococcal Vaccine: 50 + Years (1 of 1 - PCV) 12/28/2017 [facility]-Zoster Vaccines (1 of 2) 12/28/2017 [id number] Vaccine (1 - season) 2024 [facility]-Influenza Vaccine (#1) 04/13/202504/13, 09/30/2018 HPV Vaccines Aged Out No longer eligi ble based on patient's age to complete this topic [facility]-HIB Vaccines Aged Out No longer e ligible based on patient's age to complete this topic [facility]-Hepatitis A Vaccines Aged Out No longer eligible based on patient's age to complete this topic [facility]-IPV Vaccines Aged Out No longer e ligible based on patient's age to complete this topic [facility]-Rotavirus Vaccines Aged Out No lo nger eligible based on patient's age to complete this topic Insurance MEDICARE
--- OUTSIDE RECORDS SUMMARY | 2025-03-19 15:42 | XMS_ITS ---
Author Organization Unknown Vital Signs BpStanding BpSitting BpSupine Date Temperature HeartRate Weight Hei ght Spo2 Respiration Bmi HeadCircumference FieldCount TimeRecorded NeckCircumferen ce WaistCircumference Pulse 110/72 12/15 00:00 :00 98.01 69 212,6.4 0 5,10 30.4 7 6 03/04/2025 10:35:00 134/88 10/13 00:00 :00 98.3 66 221,0 5,10 31.7 1 6 03/04/2025 13:00:00 110/78 07/07 00:00 :00 98.5 86 211,6.4 0 5,10 30.3 3 6 03/04/2025 13:00:00
--- NOTE | 2025-03-19 16:08 | XR_ITS ---
FINAL REPORT CLINICAL HISTORY: CONTUSION OF RIGHT KNEE COMPARISON: None FINDINGS: Three views of the right knee were obtained. There is no acute fracture or dislocation. The joint spaces are well preserved. There is mild edema anterior to the patella. No joint effusion. IMPRESSION: Mild edema without acute bony abnormality identified. Reviewed, Interpreted and Dictated by Eugene Vora MD Transcribed by Paulina Hunt Authenticated and [facility]
== END 2025-03-19 23:59 | disposition home or self-care (01) ==
PROVIDERS: PCP Family Medicine; Visit Provider Family Medicine
DX: S80.01XA Contusion of right knee, initial encounter (principal); X58.XXXA Exposure to other specified factors, initial encounter
CPT/HCPCS: 73562